=== PATIENT | male | born 1980 | race Caucasian/White ===

== ENCOUNTER 2017-10-21 22:37 | Emergency (ER) | payer SELFPAY ==
[2017-10-21] MEDS ORDERED: Ketorolac 60 MG/2 ML SDV IM ONE (22:53)
--- NOTE | 2017-10-21 23:02 | EDM.PDOC ---
ED HPI GENERAL MEDICAL PROBLEM - General Chief Complaint: Back Pain or Injury Stated Complaint: BACK PAIN Time Seen by Provider: 10/21/17 22:57 Source of Information: Reports: Patient History Limitations: Reports: No Limitations - History of Present Illness INITIAL COMMENTS - FREE TEXT/NARRATIVE: Developed non-radiating left lower back pain this morning, no improvement with Ibuprofen. Has a h/o chronic back pain. Denies injury. Onset: Today Duration: Day(s): (1) Location: Reports: Back Quality: Reports: Dull Severity: Moderate Improves with: Reports: None Worsens with: Reports: Movement Associated Symptoms: Denies: Nausea/Vomiting Treatments [employer]: Reports: NSAIDS left side back Pain Score (Numeric/FACES): 10 - Related Data Allergies Allergy/AdvReac Type Severity Reaction Status Date / Time No Known Allergies Allergy Verified 10/21/17 22:47 Home Meds: Home Meds Cyclobenzaprine [Flexeril] 10 mg PO TID PRN #20 tab 10/21/17 [Rx] Past Medical History Musculoskeletal History: Reports: Back Pain, Chronic ED ROS GENERAL - Review of Systems Review Of Systems: ROS reveals no pertinent complaints other than HPI. ED EXAM,LOWER BACK PAIN/INJURY - Physical Exam Exam: See Below Exam Limited By: No Limitations General Appearance: Alert, WD/WN, Mild Distress Ears: Normal External Exam Nose: Normal Inspection Throat/Mouth: No Airway Compromise Head: Atraumatic, Normocephalic Neck: Full Range of Motion Respiratory/Chest: No Respiratory Distress GI/Abdominal: Normal Bowel Sounds, Soft, Non-Tender, No Distention Back Exam: Decreased Range of Motion, Paraspinal Tenderness (left). No: CVA Tenderness (L) Extremities: Normal Inspection Neurological: Alert, Normal Mood/Affect DTR - Lower Extremities: 2+: Knee (R), Knee (L) Psychiatric: Normal Affect, Normal Mood Skin Exam: Warm, Dry, Intact Course - Vital Signs Last Recorded V/S: Last Vital Signs Temp 36.4 C 10/21/17 22:37 Pulse 77 10/21/17 22:37 Resp 20 10/21/17 22:37 BP 113/69 10/21/17 22:37 Pulse Ox 100 10/21/17 22:37 - Orders/Labs/Meds Orders: Active Orders 24 hr Category Date Time Status DRUG SCREEN, URINE ALERE [URCHEM] Stat Lab 10/21/17 22:54 Ordered UA W/MICROSCOPIC [URIN] Stat Lab 10/21/17 22:55 Ordered Labs: Laboratory Tests 10/21/17 10/21/17 Range/Units 22:54 22:55 Urine Color Yellow (YELLOW) Urine Appearance Clear (CLEAR) Urine pH 5.0 (5.0-6.5) Ur Specific [place] 1.025 (1.010-1.025) Urine Protein Negative (NEGATIVE) mg/dL Urine Glucose (UA) Normal (NEGATIVE) mg/dL Urine Ketones 15 H (NEGATIVE) mg/dL Urine Occult Blood Negative (NEGATIVE) Urine Nitrite Negative (NEGATIVE) Urine Bilirubin Small H (NEGATIVE) Urine Urobilinogen 4 H (NEGATIVE) mg/dL Ur Leukocyte Esterase Negative (NEGATIVE) Urine RBC 0-5 (0) Urine WBC 0-5 (0) Ur Squamous Epith Cells Occasional (NS,R,O) Urine Bacteria Rare H (NS) Urine Opiates Screen Negative (NEGATIVE) Ur Oxycodone Screen Negative (NEGATIVE) Ur Propoxyphene Screen Negative (NEGATIVE) Ur Barbituates Screen Negative (NEGATIVE) Ur Tricyclics Screen Negative (NEGATIVE) Ur Phencyclidine Scrn Negative (NEGATIVE) Ur Amphetamine Screen Negative (NEGATIVE) Urine MDMA Screen Negative (NEGATIVE) U Benzodiazepines Scrn Negative (NEGATIVE) U Cocaine Metab Screen Negative (NEGATIVE) U Marijuana (THC) Screen Negative (NEGATIVE) Meds: Medications Discontinued Medications Generic Name Dose Route Start Last Admin Trade Name Freq PRN Reason Stop Dose Admin Cyclobenzaprine HCl 10 mg 10/21/17 23:38 Flexeril PO 10/21/17 23:39 ONETIME ONE Ketorolac Tromethamine 60 mg 10/21/17 22:53 10/21/17 23:01 Toradol IM 10/21/17 22:54 60 mg ONETIME ONE Administration - Re-Assessments/Exams Free Text/Narrative Re-Assessment/Exam: 10/21/17 23:43 Patient obtained significant relief after Toradol 60mg IM Departure - Departure Time of Disposition: 23:44 Disposition: Home, Self-Care 01 Condition: Good Clinical Impression: Lumbago Qualifiers: Chronicity: acute Back pain laterality: left Sciatica presence: without sciatica Qualified Code(s): M54.5 - Low back pain - Discharge Information *PRESCRIPTION DRUG MONITORING PROGRAM REVIEWED*: Yes *COPY OF PRESCRIPTION DRUG MONITORING REPORT IN PATIENT IZAEBLA: No Prescriptions: Cyclobenzaprine [Flexeril] 10 mg PO TID PRN #20 tab PRN Reason: Muscle Spasm Referrals: PCP,Not In Area [Primary Care Provider] - Forms: ED Department Discharge - My Orders Last 24 Hours: My Active Orders 10/21/17 22:54 DRUG SCREEN, URINE ALERE [URCHEM] Stat 10/21/17 22:55 UA W/MICROSCOPIC [URIN] Stat - Assessment/Plan Last 24 Hours: My Active Orders 10/21/17 22:54 DRUG SCREEN, URINE ALERE [URCHEM] Stat 10/21/17 22:55 UA W/MICROSCOPIC [URIN] Stat
[2017-10-21] MEDS ORDERED: Cyclobenzaprine 10 MG Tab PO ONE (23:38)
== END 2017-10-21 23:55 | disposition home or self-care (01) ==
LOC: FB.ED 22:37
DX: M54.5 Low back pain (principal)
CPT/HCPCS: 80305; 81001; 96372; 99283; A9270; J1885

== ENCOUNTER 2020-11-29 20:13 | Emergency (ER) | payer BC ==
[2020-11-29] MEDS ORDERED: Ketorolac 30 MG/ML SDV IM STA (20:19)
[2020-11-29] MEDS ORDERED: Cyclobenzaprine 10 MG Tab PO STA (20:19)
[2020-11-29] MEDS ORDERED: Acetaminophen 500 MG Tab PO STA (20:19)
--- NOTE | 2020-11-29 20:41 | EDM.PDOC ---
ED HPI GENERAL MEDICAL PROBLEM - General Chief Complaint: Upper Extremity Injury/Pain Stated Complaint: shoulder pain Time Seen by Provider: 11/29/20 20:25 Source of Information: Reports: Patient History Limitations: Reports: No Limitations - History of Present Illness INITIAL COMMENTS - FREE TEXT/NARRATIVE: Patient presented to the ED because of a left shoulder pain. He was trying to put something in the cup board 3 days ago and heard a pop at the shoulder blade area. He c/o 7/10 pain that is worse with movement. Left Upper Posterior Shoulder Pain Score (Numeric/FACES): 7 - Related Data Allergies Allergy/AdvReac Type Severity Reaction Status Date / Time No Known Allergies Allergy Verified 10/21/17 22:47 Home Meds: Home Meds Cyclobenzaprine [Flexeril] 10 mg PO TID PRN #20 tab 10/21/17 [Rx] Ibuprofen 800 mg PO Q8H PRN #30 tablet 11/29/20 [Rx] tiZANidine [Zanaflex] 2 mg PO Q8H PRN #15 tab 11/29/20 [Rx] Past Medical History - Past Health History Medical/Surgical History: Denies Medical/Surgical History Musculoskeletal History: Reports: Back Pain, Chronic Social & Family History - Family History Family Medical History: No Pertinent Family History - Tobacco Use Tobacco Use Status *Q: Current Every Day Tobacco User Years of Tobacco use: 10 Packs/Tins Daily: 0.1 - Caffeine Use Caffeine Use: Reports: Coffee - Recreational Drug Use Recreational Drug Use: No Review of Systems - Review of Systems Review Of Systems: See Below Constitutional: Reports: No Symptoms Eyes: Reports: No Symptoms Ears: Reports: No Symptoms Nose: Reports: No Symptoms Mouth/Throat: Reports: No Symptoms Respiratory: Reports: No Symptoms Cardiovascular: Reports: No Symptoms GI/Abdominal: Reports: No Symptoms Genitourinary: Reports: No Symptoms Musculoskeletal: Reports: Shoulder Pain Skin: Reports: No Symptoms Neurological: Reports: No Symptoms Psychiatric: Reports: No Symptoms ED EXAM, GENERAL - Physical Exam Exam: See Below Exam Limited By: No Limitations General Appearance: Alert, No Apparent Distress Eye Exam: Bilateral Eye: PERRL Ears: Normal External Exam, Normal Canal Nose: Normal Inspection, Normal Mucosa, No Blood Throat/Mouth: Normal Inspection, Normal Lips Head: Atraumatic, Normocephalic Neck: Normal Inspection, Supple, Non-Tender, Full Range of Motion Respiratory/Chest: No Respiratory Distress, Lungs Clear, Normal Breath Sounds, No Accessory Muscle Use, Chest Non-Tender Cardiovascular: Normal Peripheral Pulses, Regular Rate, Rhythm, No Edema, No Gallop, No Murmur GI/Abdominal: Normal Bowel Sounds, Soft, Non-Tender, No Organomegaly Back Exam: Normal Inspection Extremities: Normal Inspection, Other (tenderness left scapular area) Neurological: Alert, Oriented, CN II-XII Intact, Normal Cognition Psychiatric: Normal Affect Skin Exam: Warm Course - Vital Signs Text/Narrative:: Toradol 60 mg IM x1 Flexeril 10 mg PO x1 Tylenol 1000 mg PO x1 Last Recorded V/S: Last Vital Signs Temp 36.6 C 11/29/20 20:19 Pulse 80 11/29/20 20:19 Resp 18 11/29/20 20:19 BP 123/79 11/29/20 20:19 Pulse Ox 98 11/29/20 20:19 - Orders/Labs/Meds Meds: Medications Discontinued Medications Generic Name Dose Route Start Last Admin Trade Name Fadyq PRN Reason Stop Dose Admin Acetaminophen 1,000 mg 11/29/20 20:19 11/29/20 20:29 Acetaminophen 500 Mg Tab PO 11/29/20 20:20 1,000 mg NOW STA Administration Cyclobenzaprine HCl 10 mg 11/29/20 20:19 11/29/20 20:28 Cyclobenzaprine 10 Mg Tab PO 11/29/20 20:20 10 mg NOW STA Administration Ketorolac Tromethamine 60 mg 11/29/20 20:19 11/29/20 20:29 Ketorolac 30 Mg/Ml Sdv IM 11/29/20 20:20 60 mg NOW STA Administration Departure - Departure Time of Disposition: 20:45 Disposition: Home, Self-Care 01 Condition: Good Clinical Impression: Sprain of shoulder, left - Discharge Information Prescriptions: Ibuprofen 800 mg PO Q8H PRN #30 tablet PRN Reason: Pain tiZANidine [Zanaflex] 2 mg PO Q8H PRN #15 tab PRN Reason: Spasms Instructions: Shoulder Sprain Additional Instructions: Please read discharge instructions on shoulder sprain Apply ice or heat whichever you prefer Take ibuprofen 800 mg with tylenol 1000 mg and tizanidine 2 mg every 8 hours as needed for pain Follow up as needed Sepsis Event Note (ED) - Evaluation Sepsis Screening Result: No Definite Risk - Focused Exam Vital Signs: Vital Signs Temp Pulse Resp BP Pulse Ox 11/29/20 20:19 36.6 C 80 18 123/79 98
== END 2020-11-29 20:47 | disposition home or self-care (01) ==
LOC: FB.ED 20:13
DX: S43.402A Unspecified sprain of left shoulder joint, initial encounter (principal); Z72.0 Tobacco use; X58.XXXA Exposure to other specified factors, initial encounter
CPT/HCPCS: 96372; 99283; A9270; J1885